=== PATIENT | female | born 1950 | race Caucasian/White ===

== ENCOUNTER → 2019-02-02 13:25 | Outpatient (CLI) | payer MEDICARE, SELFPAY ==
[2019-01-25 10:45] VITALS: BMI 43.5
--- NOTE | 2019-02-02 13:27 | US_ITS ---
STUDY: ULTRASOUND TRANSVAGINAL CLINICAL: Female, 68 years old. Postmenopausal bleeding TECHNIQUE: Transvaginal and transabdominal COMPARISON: None. FINDINGS: Normal uterine size measuring 6 x 5.5 x 3.2 cm in maximal craniocaudal dimension. There are no myometrial masses. Thickened endometrial lining for postmenopausal state measuring 12 mm in thickness and heterogeneous.. There are no endometrial masses, and there is no fluid in the endometrial cavity. Tiny calcifications are seen within the endometrial lining Normal uterine cervix. Ovaries are not visualized. No adnexal mass or free fluid US/Transvaginal Non- IMPRESSION: Thickened endometrial lining for postmenopausal state. Cannot exclude endometrial hyperplasia or neoplasia. Clinical correlation recommended Electronically Signed: Campbell Daniel MD at 16:55 EDT , Service support ,
== END ==
PROVIDERS: Family Provider Family Medicine; PCP Family Medicine; Referring Provider Nurse Practitioner Women's Health; Visit Provider Nurse Practitioner Women's Health
DX: N95.0 Postmenopausal bleeding (principal)
CPT/HCPCS: 76830

== ENCOUNTER 2019-04-16 17:10 | Emergency (ER) | payer MEDICARE, SELFPAY ==
[2019-01-25 10:45] VITALS: BMI 43.5
[2019-04-16 17:10] VITALS: BP 150/79; PULSE 81; RESP 16; TEMP 37.2; O2SAT 98; BMI 41.5
[2019-04-16 17:23] VITALS: BP 148/75; PULSE 82; RESP 14; O2SAT 98
--- NOTE | 2019-04-16 17:30 | RAD_ITS ---
STUDY: X-RAY CHEST REASON FOR EXAM: Female, 69 years old. Fever and chills, recent chemotherapy TECHNIQUE: Frontal view of the chest was performed COMPARISON: None. FINDINGS: Lungs are clear. There is no pneumothorax, pulmonary edema, pleural effusions or cardiomegaly. Osseous structures are intact. There is no gas under the diaphragms. [ ] RAD/Chest 1 View (Portable) IMPRESSION: 1. No acute cardiorespiratory disease. [ ] Electronically Signed: Mark Hunter, at 18:06 EDT Tel , Service support ,
--- NOTE | 2019-04-16 17:31 | ED.VIS.GEN ---
History of Present Illness Chief Complaint: Fever Informant: Patient Onset: Days Current Severity: Mild Maximum Severity: Mild Narrative: Patient presents with concern for fever. 3 days ago she had a temperature of 100.5 and had a syncopal episode with a fall. She called her oncologist who advised her to hold her to chlorothiazide. She felt well the next 2 days but today has had a fever again, T-max 101.7. Last dose of Tylenol was 6-1/2 hours prior to arrival. She reports a very minimal cough and some mild lower abdominal cramping. She is currently on carbo and Taxol for treatment of uterine cancer. She had a hysterectomy performed approximately 5 weeks ago. Past Medical History - Allergies and Home Meds Allergies/Adverse Reactions: Allergies lisinopril Adverse Reaction (Verified 04/16/19 17:12) Other Primary Care Physician: Gato Crowell MD [STAFF PHYSICIAN] - Doctors: Dr. Tellez Prior records reviewed: Yes Past Medical History: - - Reviewed Surgical History: hysterectomy Lives: With Family Smoking Status: Never smoker Review of Systems General: Reports: Fever. Denies: Chills Eyes: Denies: Visual changes - bilaterally ENT: Denies: Bilateral ear pain, Sore throat Cardiovascular: Denies: Chest pain, Palpitations Respiratory: Reports: Cough. Denies: Dyspnea, Sputum Gastrointestinal: Reports: Abdominal pain, - - Decreased appetite. Denies: Nausea, Vomiting, Diarrhea Genitourinary: Denies: Dysuria Musculoskeletal: Reports: Extremity Pain - Achiness in bilateral legs Skin: Denies: Rash Neurological: Reports: Headache - Mild, waxing and waning headache Endocrine: Denies: Polyuria, Polydipsia Hematologic: Denies: Easy bruising Allergy: Denies: Uticaria Physical Exam Vital Signs/Narrative: Vital Signs Temp Pulse Resp BP Pulse Ox 04/16/19 17:23 82 14 148/75 H 98 04/16/19 17:10 99 F 81 16 150/79 H 98 General: Well nourished, Well developed Head: Normocephalic Eyes: EOMI ENT: Moist mucous membranes Neck: Supple Cardiovascular: Regular rate, Regular rhythm Respiratory: No distress, CTA bilaterally Abdomen: Soft, Nontender, Normal bowel sounds Extremities: Nontender Skin: Normal color, No rash Neurological: Alert, Oriented x3 Psychological: Normal affect Diagnostic/Tx/Re-eval Impressions Chest X-Ray 04/16/19 17:30 IMPRESSION: 1. No acute cardiorespiratory disease. [ ] Electronically Signed: Mark Hunter, at 18:06 EDT Tel , Service support , 04/16/19 17:30 Chest 1 View (Portable) [RAD] Stat Laboratory Results 04/16/19 04/16/19 04/16/19 17:55 17:55 17:55 WBC 3.1 L RBC 3.92 L Hgb 11.7 L Hct 35.5 L MCV 90.6 MCH 29.8 MCHC 33.0 RDW Std Deviation 41.1 RDW Coeff of Rayna 12.3 Plt Count 161 MPV 9.9 Immature Gran % (Auto) 0.700 Neut % (Auto) 68.2 Lymph % (Auto) 27.5 Garrard % (Auto) 1.6 Eos % (Auto) 1.3 Baso % (Auto) 0.7 Absolute Neuts (auto) 2.1 Absolute Lymphs (auto) 0.84 Nucleated RBC % 0 Differential Comment SCANNED Sodium 134 L Potassium 3.3 L Chloride 96 L Carbon Dioxide 32.0 Anion Gap 6 BUN 12 Creatinine 0.71 Estim Creat Clear Calc 45.20 Est GFR (MDRD) Af Amer 104 Est GFR (MDRD) Non-Af 86 BUN/Creatinine Ratio 16.9 Glucose 126 H Lactic Acid 1.9 Calcium 9.1 Total Bilirubin 1.00 Direct Bilirubin 0.26 AST 35 ALT 39 Alkaline Phosphatase 111 Total Protein 7.3 Albumin 3.6 Globulin 3.7 Urine Color Urine Clarity Urine pH Ur Specific [place] Urine Protein Urine Glucose (UA) Urine Ketones Urine Occult Blood Urine Nitrite Urine Bilirubin Urine Urobilinogen Ur Leukocyte Esterase Urine RBC Urine WBC Ur Squamous Epith Cells Urine Bacteria Urine Mucus 04/16/19 19:15 WBC RBC Hgb Hct MCV MCH MCHC RDW Std Deviation RDW Coeff of Rayna Plt Count MPV Immature Gran % (Auto) Neut % (Auto) Lymph % (Auto) Garrard % (Auto) Eos % (Auto) Baso % (Auto) Absolute Neuts (auto) Absolute Lymphs (auto) Nucleated RBC % Differential Comment Sodium Potassium Chloride Carbon Dioxide Anion Gap BUN Creatinine Estim Creat Clear Calc Est GFR (MDRD) Af Amer Est GFR (MDRD) Non-Af BUN/Creatinine Ratio Glucose Lactic Acid Calcium Total Bilirubin Direct Bilirubin AST ALT Alkaline Phosphatase Total Protein Albumin Globulin Urine Color Yellow Urine Clarity Clear Urine pH 8.0 Ur Specific [place] 1.010 Urine Protein 30 H Urine Glucose (UA) Normal Urine Ketones 5 H Urine Occult Blood 10 H Urine Nitrite Negative Urine Bilirubin Negative Urine Urobilinogen Normal Ur Leukocyte Esterase 25 H Urine RBC 0 SEEN Urine WBC 0-5 SEEN Ur Squamous Epith Cells 0 SEEN Urine Bacteria 0 SEEN Urine Mucus 0 SEEN - Medical Decision Making Patient was given IV fluids here. Test results are discussed with patient and family. I spoke with Dr. Urias, on-call for Dr. Tellez. Patient is not currently neutropenic and has no obvious source of infection. Patient is to monitor her symptoms and follow-up tomorrow. ED Disposition - Plan for ED Patient: Disposition: Home or Assisted Living Diagnosis: Fever Instructions: FEBRILE ILLNESS, Uncertain Cause (Adult) Referrals: Savage Tellez DO [STAFF PHYSICIAN] - 1 Day
[2019-04-16] MEDS: 0.9% Normal Saline 1,000 ML 150 ML IV (17:54)
[2019-04-16 18:12] LABS: Absolute Lymphocyte Count 0.84 X10^3/uL (0.83-4.51); Absolute Neutrophil Count 2.1 X10^3/uL (2.0-7.7); Basophil# 0.02 X10^3/uL; Basophil% 0.7 % (0-1); Eosinophil# 0.04 X10^3/uL; Eosinophils% 1.3 % (0-5); Hematocrit 35.5 % (37-47); Hemoglobin 11.7 g/dL (12.0-15.0); Lymphocyte # 0.84 X10^3/ul (4.0); Lymphocyte % 27.5 % (19-41); Mean Corpuscular Hgb 29.8 pg (27.0-32.0); Mean Corpuscular Volume 90.6 fL (81-99); Mean Platelet Vol. 9.9 fl (6.2-12.0); Monocyte# 0.05 X10^3/uL; Monocyte% 1.6 % (0-10); NRBC Flagged by Analyzer 0 % (0-5); Neutrophil # 2.08 X10^3/uL (2.7-7.7); Neutrophil % 68.2 % (47-70); POSITIVE MORPHOLOGY YES; Platelet Count 161 K/mm3 (150-450); RBC Distribution Width CV 12.3 % (11.6-14.6); RBC Distribution Width SD 41.1 fl (35.1-43.9); Red Blood Count 3.92 M/mm3 (4.2-5.4); White Blood Count 3.1 K/mm3 (4.4-11.0)
[2019-04-16 18:15] LABS: Differential Indicated SCAN CRITERIA MET
[2019-04-16 18:27] LABS: AST(SGOT) 35 U/L (15-37); Alanine Aminotransfer ALT/SGPT 39 U/L (13-56); Albumin, Serum 3.6 g/dL (3.2-5.0); Alkaline Phosphatase 111 U/L (45-117); Anion Gap 6 (5-15); BUN 12 mg/dL (7-18); BUN/Creat Ratio 16.9 RATIO (10-20); Bilirubin, Direct 0.26 mg/dL (0.00-0.30); Calcium,Total 9.1 mg/dL (8.5-10.1); Chloride 96 mmol/L (98-107); Creatinine, Serum 0.71 mg/dL (0.55-1.02); EST Glomerular Filtration Rate 86 mL/min (>60); Est Glom Filt Rate - Afr Amer 104 mL/min (>60); Globulin 3.7 g/dL (2.2-4.2); Glucose 126 mg/dL (74-106); Potassium 3.3 mmol/L (3.5-5.1); Protein, Total 7.3 g/dL (6.4-8.2); Sodium Level 134 mmol/L (136-145)
[2019-04-16 18:31] LABS: Differential Comment SCANNED
[2019-04-16 18:36] LABS: Lactic Acid 1.9 mmol/L (0.4-2.0)
[2019-04-16 19:23] LABS: Bacteria 0 SEEN /hpf (None Seen); Mucous, Urine 0 SEEN /hpf (<or=2+); Red Blood Cells-Urine 0 SEEN /hpf (0-5); Squamous Epithelial Cells - UA 0 SEEN /hpf (5-10)
[2019-04-16 19:29] LABS: Color, Urine Yellow (Yellow); Glucose, Dipstick Normal (Normal); Ketone-Dipstick 5 mg/dl (Negative); Leukocyte Esterase-Dipstick 25 /ul (Negative); Nitrite-Dipstick Negative (Negative); Occult Blood-Urine 10 /ul (Negative); Protein-Dipstick 30 mg/dl (Negative); Urine Bilirubin Dipstick Negative (Negative); Urine Clarity Clear (Clear); Urine Urobilinogen Normal (Normal)
[2019-04-16 19:33] LABS: White Blood Cells 0-5 SEEN /hpf (0-5)
[2019-04-16 19:35] VITALS: RESP 20
[2019-04-16 20:19] VITALS: BP 141/80; PULSE 80; RESP 16; O2SAT 98
== END 2019-04-16 20:36 | disposition home or self-care (01) ==
PROVIDERS: Emergency Provider Emergency Medicine
DX: R50.9 Fever, unspecified (principal)
CPT/HCPCS: 71045; 80048; 80076; 81001; 83605; 85025; 87040; 96360; 96361; 99284; J7030; A4216

== ENCOUNTER 2019-04-30 13:21 | Day surgery (SDC) | payer MEDICARE, SELFPAY ==
--- NOTE | 2019-04-28 14:20 | HP.PCM_ITS ---
History and Physical Date of Admission: 04/30/19 Sariah Delcid 1950 REFERRING PHYSICIAN: Savage Tellez DO CHIEF COMPLAINT: port consult HPI: The patient is a 69 year old female who presents for consideration for placement of portacath. She had initially presented with vaginal bleeding and workup revealed uterine cancer. She is s/p total hysterectomy 03/09/19. She will require neoadjuvant chemotherapy. Portacath placement is requested. Denies DVT Denies fractures Denies previous central line placement. PAST MEDICAL HISTORY ? Allergic rhinitis, cause unspecified year round ? Anxiety ? 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 Depression ? Diabetes (HCC) ? Diabetes mellitus without complication (HCC) 02/16/2019 ? Diverticulosis of colon (without mention of hemorrhage) ? Essential hypertension, benign ? External hemorrhoids without mention of complication ? GERD (gastroesophageal reflux disease) ? Hyperlipidemia ? Internal hemorrhoids without mention of complication ? Obesity, unspecified ? TRAVON (obstructive sleep apnea) 02/16/2019 ? Osteoarthrosis, unspecified whether generalized or localized, unspecified site fingers, knees ? Other and unspecified hyperlipidemia ? Unspecified constipation 1960 PAST SURGICAL HISTORY ? COLONOSCOP W/ OR W/O [facility] SPEC 06/15/11 repeat due 2020 ? LIGATE FALLOPIAN TUBE 1977 Tubal ligation ? REMOVAL OF TONSILS,<12 Y/O 1955 Tonsillectomy Robotic total hysterectomy, bilateral salpingo-oophorectomy,?left/right pelvic a nd?omental biopsy?and cystoscopy?03/09/19 ? Current Outpatient Medications: ondansetron (ZOFRAN) 8 mg tablet Take 1 tablet by mouth every 8 hours as needed for Nausea/Vomiting. dexamethasone (DECADRON) 4 mg tablet Take 5 tablets 12 hours prior to and again 6 hours prior to first dose of Taxol. acetaminophen (TYLENOL) 325 mg tablet Take 2 tablets by mouth every 4 hours as needed. (Patient not taking: Reported on 04/03/2019 ibuprofen (MOTRIN) 600 mg tablet Take 1 tablet by mouth every 6 hours as needed for Pain. Take with food. docusate sodium (COLACE) 100 mg capsule Take 1 capsule by mouth twice daily. (Patient not taking: Reported on 03/30/2019 Omeprazole 40 mg capsule Take 40 mg by mouth once daily. rosuvastatin (CRESTOR) 20 mg tablet Take 20 mg by mouth once daily. FLUoxetine HCl 20 mg tablet Take 20 mg by mouth once daily. metformin HCl (METFORMIN ORAL) Take 1,000 mg by mouth twice daily with meals. metoprolol succinate XL, long acting, 50 mg 24 hr tablet Take 1 tablet by mouth once daily. hydrochlorothiazide 25 mg tablet Take 1 tablet by mouth once daily. polyethylene glycol 3350 17 gram packet 1-2 scoops daily for constipation ascorbic acid(VITAMIN C 500 MG SR CAP) Take 1 capsule by mouth once daily. VITAMIN E 400 UNIT CAP Take 400 Units by mouth twice daily. Swallow whole. DO NOT crush or break. cyanocobalamin(VITAMIN B-12 SR 2,000 MCG TAB) Take 1 tablet by mouth once kenroy ly. aspirin(ADULT LOW DOSE ASPIRIN 81 MG TAB, DELAYED RELEASE) Take 81 mg by mouth once daily. Calcium Carbonate-Vitamin D2 (CALCIUM + D) 600-200 mg-unit ORAL Tab Take 1 tablet by mouth twice daily. Multivitamin (DAILY MULTIPLE) ORAL Tab Take 1 tablet by mouth once daily. loratadine (CLARITIN) 10 mg ORAL Tab Take one(1) tablet daily as needed for allergy symptoms. ALLERGIES: Lisinopril; Losartan PERSONAL HISTORY: Social History Socioeconomic History Marital status: Spouse name: Good Number of children: 3 Years of education: 12 Occupational History Occupation: retired, [employer] Social History Narrative In [place] for winter usually. FAMILY HISTORY ? Lipids Mother ? other (non hodgekins lymphoma) Mother ? Cancer Father skin cancer (BCC vs. SCC) ? Heart Father CABGx3 (age 79) ? Heart disease Father ? Heart Maternal Grandfather age 52; heavy alcohol ? Stroke Paternal Grandfather ? Cancer Brother prostate ca ? other (Cirrhosis) Paternal Grandmother no alcohol, told too much aspirin ? Cancer Grandchild 28 breast ca; PALB2 mutation but her mother (pt's daughter is negative) REVIEW OF SYSTEMS: Constitutional: Denies weight loss, night sweats. Normal appetite. Neuro: denies history of cva, Denies headaches, vertigo, dizziness and imbalance. HEENT: No recent change in voice, vision or hearing. Resp: Denies cough, wheeze and hemoptysis. Denies shortness of breath at rest. Denies [place]. CVS: Denies exertional chest pain, PND, orthopnea and LE edema. GI: denies chronic N/V. Denies blood in stools. Denies symptoms of stomatitis. Denies dysphagia and odynophagia. : noted vaginal bleeding which led to findings of uterine cancer Endo: Has diabetes. Denies hot flashes. Denies polyuria and polydipsia. Denies heat and cold intolerance. Musculoskeletal: has calf soreness Derm: Denies rash. Denies jaundice and diffuse pruritis. Heme: Denies unusual bleeding and unexplained bruising. Psych: Normal mood. PHYSICAL EXAMINATION: General: The patient is 69 year old female, well nourished, well hydrated in no acute distress. The patient is oriented to time, place, and person. VITALS: Blood pressure 138/68, pulse 77, temperature 36.6 ?C (97.8 ?F), temperature source Temporal Artery, resp. rate 18, weight 109.3 kg (241 lb), Ht; 5'4.25 SpO2 96 %. Body mass index is 41.05 kg/m?. Head ? Normocephalic. EOM intact with sclera clear and no icterus noted. Mouth with mucus membranes moist. Neck - supple with no jugular venous distention noted. Trachea is midline. . No masses noted. Lungs ? clear to auscultation. Normal breath sounds. No rales/rhonchi/wheezing noted. No labored breathing noted, such as retractions. No cough heard. Heart ? normal S1 and S2 auscultated. No rubs/clicks/murmurs noted. Regular rate. Abdomen ? soft and benign. Normal bowel sounds. Difficult to determine if any masses or organomegaly due to body habitus. Extremities ? no calf tenderness noted. No pitting edema noted. Skin ? normal skin integrity. Lymph ? no cervical adenopathy detected, no supraclavicular adenopathy detected Neurological ? cranial nerves II-XII intact. Normal motor strength in arms and legs. No localized numbness detected. Psych ? calm and appropriate IMPRESSION: uterine cancer, need for IV access PLAN: I have discussed the above with the patient and her family who is present with her. I have offered placement of portacath I have explained the procedure to the patient. I have counseled the patient as to the risks of the procedure, including but not limited to: infection, bleeding, injury to any blood vessels/nerves, injury to the lungs such as pneumothorax or hemothorax, inability to place the portacath, thrombosis, infection of port, non functioning of port, wound infections, complications of anesthesia, etc. ? the patient understands. The patient wishes to proceed. I have answered all questions to the patient?s satisfaction and the patient has no further questions. . 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 Sariah Santamaria MD
[2019-04-30] VITALS (8 sets, daily range): BP systolic 139–147; BP diastolic 63–77; PULSE 65–71; RESP 16; TEMP 36.3–36.8; O2SAT 96–97; BMI 39.9
[2019-04-30] MEDS: Lactated Ringers 1,000 ML 75 ML IV (13:59)
[2019-04-30 14:36] LABS: Bedside Glucose 131 mg/dL (70-110)
[2019-04-30] MEDS: Cefazolin 2 GM in 0.9% Normal Saline 100 ML IV (15:02)
--- NOTE | 2019-04-30 15:59 | DCINST_ITS ---
Discharge Diet: No Restrictions Discharge Activity: Return to Normal Activity, May not drive while taking narcotic pain medications. Call your doctor if your incision/area has: Continuous Slow Oozing, Foul Smelling Discharge Additional Dressing/Incision Instructions:: Leave dressing in place. May get wet in shower. Do not soak - no tub baths/swimming Allergies/Adverse Reactions: Allergies lisinopril Adverse Reaction (Verified 04/30/19 13:49) Other Medications to take at Discharge aspirin 81 mg tablet,delayed release 81 mg PO DAILY 01/25/19 calcium carbonate 500 mg calcium (1,250 mg) tablet 600 mg PO DAILY 01/25/19 cholecalciferol (vitamin D3) 1,000 unit capsule 1,000 unit PO DAILY 01/25/19 fluoxetine 20 mg capsule 20 mg PO DAILY 01/25/19 mecobalamin (vitamin B12) 1,000 mcg disintegrating tablet,sublingual 1,000 mcg PO DAILY 01/25/19 melatonin 10 mg capsule 10 mg PO HS 01/25/19 metformin 1,000 mg tablet 1,000 mg PO BID 01/25/19 metoprolol tartrate 50 mg tablet 50 mg PO DAILY 01/25/19 multivitamin tablet 1 tab PO DAILY 01/25/19 omeprazole 20 mg capsule,delayed release 20 mg PO DAILY 01/25/19 polyethylene glycol 3350 17 gram/dose oral powder 17 g PO DAILY 01/25/19 rosuvastatin 20 mg tablet 20 mg PO DAILY 01/25/19 Cyanocobalamin (Vitamin B-12) [Vitamin B-12] 1,000 mcg PO DAILY 04/26/19 Hydrocodone Bitart/Apap 5-325 [[place] 5MG-325MG] 1 tab PO Q8H PRN PRN 4 Days #20 tab 04/30/19 The following prescriptions were given: Hydrocodone Bitart/Apap 5-325 [[place]prise 5MG-325MG] 1 tab PO Q8H PRN PRN 4 Days #20 tab PRN Reason: Pain Prescription Printed Primary Care Physician: Care Physician,No Primary [Primary Care Provider] - Test Results: Test results from this visit will be discussed in further detail at your follow- up appointment, if applicable. Please Follow Up With: Sariah Santamaria MD - call When: to be seen in 1-2 weeks, please call for date and time, thank you
--- NOTE | 2019-04-30 16:00 | PCM.OPRPT ---
Report of Operation Date of Procedure: 04/30/19 Pre-Operative Diagnosis: uterine cancer, need for IV access Post-Operative Diagnosis: same Surgery/Procedure Performed:: placement of permanent indwelling catheter in the right subclavian vein with subcutaneous port Description of Surgical Findings:: could not access left subclavian vein or left internal jugular vein, normal right subclavian vein anatomy to the SVC Type of Anesthesia:: Local MAC Anesthesiologist: Ash Post Specimen's removed: none Estimated Blood Loss (mL): < 10 ml Fluids Replaced: see anesthesia note Description of Procedure: After informed consent was given, the patient was brought to the operating room and placed in the supine position. Appropriate time out protocol was followed. She was then given IV conscious sedation for anesthesia. The patient?s upper chest and neck were then prepped with a surgical skin preparation and sterile surgical drapes were placed. After proper landmarks were ascertained, the skin at the upper left chest area was then infiltrated with 1% xylocaine with epinephrine. A needle trocar was then inserted into the left subclavian vein but could not be accessed. Attempt was also made to access the left internal jugular vein, but this also could not be found. Therefore attention was placed to the right chest area. After ascertaining landmarkds,, the skin at the upper right chest area was then infiltrated with 1% xylocaine with epinephrine. A needle trocar was then inserted into the right subclavian vein and there was good aspiration of venous blood. A wire was then threaded into the needle trocar and this was visualized under fluoroscopy to ensure that the wire was in the right subclavian vein. Once this was done, then the needle trocar was removed. A small skin alexey was made with an 11 blade knife at the wire entrance site. The dilator with the introducer sheath attached was then placed over the wire into the right subclavian vein via the Seldinger technique and this was visualized under fluoroscopy. The dilator and sheath were in proper position as visualized by fluoroscopy. The wire and dilator were then removed. The catheter was then threaded into the introducer sheath and was positioned with its tip at the junction of the superior vena cava and the right atrium as visualized under fluoroscopy. The catheter was flushed with a heparin saline mixture prior to placement. A subcutaneous pocket was then created caudad to the catheter insertion site. A transverse skin incision was made after the skin and subcutaneous tissues were infiltrated with local anesthetic. Blunt dissection was then used to create a space large enough for placement of the subcutaneous port. Hemostasis was carefully controlled with electrocautery. The port was sutured to the subcutaneous fascia using vicryl suture at three sites. The catheter was then tunneled into the subcutaneous pocket. The excess catheter was transected. The catheter was then attached to the subcutaneous port using farmworker general?s guidelines. The port was then placed in the subcutaneous pocket and the sutures were ligated. The subdermal incisional sites were reapproximated with interrupted vicryl suture. The skin was reapproximated with monocryl suture in a subcuticular fashion. Cavilon and steristrips were used for reinforcement of the skin closure and a sterile opsite dressing was applied. The patient was brought to the Recovery Room in stable conditionl. - Complications none noted - Admit VTE Documentation VTE Present on Admission: Yes VTE Mechan Device Prophylaxis: SCD's
--- NOTE | 2019-04-30 16:05 | RAD_ITS ---
STUDY: X-RAY CHEST REASON FOR EXAM: Female, 69 years old. Sagittal vascular port insertion TECHNIQUE: PA and lateral views of the chest. COMPARISON: 04/16/2019 chest x-ray FINDINGS: The right-sided Port-A-Cath tip is in superior vena cava. There is no demonstrated pleural abnormality. There are endovascular stent(s) present. Normal mediastinum and ymaile. Normal visualized pulmonary arteries. There is atherosclerotic tortuosity of the aortic arch and descending thoracic aorta. There are diffuse degenerative changes of the visualized thoracic spine. Normal visualized ribs, clavicles, and shoulders. There is no demonstrated abnormality of the visualized soft tissue structures of the upper abdomen. RAD/CXR for Line Placement IMPRESSION: Right-sided Port-A-Cath tip in this particular vena cava. No pneumothorax. Electronically Signed: Anjana Torre MD at 16:33 EST Tel , Service support ,
== END 2019-04-30 18:13 | disposition home or self-care (01) ==
LOC: SDC 13:25 → AC 13:25
PROVIDERS: Referring Provider Surgery; Visit Provider Surgery
PROC: (CPT 36561; principal; 2019-04-30 14:45)
DX: C55 Malignant neoplasm of uterus, part unspecified (principal); K21.9 Gastro-esophageal reflux disease without esophagitis; E78.00 Pure hypercholesterolemia, unspecified; E11.9 Type 2 diabetes mellitus without complications; F32.9 Major depressive disorder, single episode, unspecified; F41.9 Anxiety disorder, unspecified; I10 Essential (primary) hypertension; G47.30 Sleep apnea, unspecified; E66.01 Morbid (severe) obesity due to excess calories; Z68.41 Body mass index [BMI] 40.0-44.9, adult; Z45.2 Encounter for adjustment and management of vascular access device; Z79.82 Long term (current) use of aspirin; Z79.84 Long term (current) use of oral hypoglycemic drugs; Z79.899 Other long term (current) drug therapy
CPT/HCPCS: 36561; 71045; 77001; 82962; J7120; C1788; J2405

== ENCOUNTER 2019-07-07 15:58 | Emergency (ER) | payer MEDICARE, SELFPAY ==
[2019-04-30 13:50] VITALS: BMI 39.9
[2019-07-07 15:59] VITALS: BP 143/70; PULSE 81; RESP 16; TEMP 36.9; O2SAT 97; BMI 38.6
[2019-07-07 16:16] VITALS: RESP 18
--- NOTE | 2019-07-07 16:21 | ED.DCSUM_ITS ---
History of Present Illness Chief Complaint: Abd Pain Informant: Patient, Family Narrative: Patient presents after concern for urinary tract infection. Patient has been noticing dysuria and some incontinence and urgency. Low-grade temperature yesterday at 99. She is a chemotherapy patient for uterine cancer and sees Dr. Tellez. Last chemotherapy was Tuesday. The patient states she did have some vomiting today. She is had decreased p.o. yesterday and today compared to normal. No diarrhea. No runny nose cough sore throat. Past Medical History - Allergies and Home Meds Allergies/Adverse Reactions: Allergies lisinopril Adverse Reaction (Verified 07/07/19 16:04) Other Primary Care Physician: Savage Tellez DO [Primary Care Provider] - Keep Kaylee appointment Surgical History: hysterectomy Smoking Status: Never smoker Review of Systems General: Reports: Fever, Malaise. Denies: Chills, Sweats Eyes: Denies: Visual changes - bilaterally, Diplopia ENT: Denies: Rhinorrhea, Sore throat Cardiovascular: Denies: Chest pain, Palpitations Respiratory: Denies: Dyspnea, Cough, Dyspnea on exertion Gastrointestinal: Reports: Nausea, Vomiting. Denies: Abdominal pain, Diarrhea, Melena, Hematochezia Genitourinary: Reports: Dysuria, - - Urgency and incontinence. Denies: Hematuria, Frequency Musculoskeletal: Denies: Back pain, Extremity Pain Skin: Denies: Rash, Wounds Neurological: Denies: Headache, Weakness, Numbness Psych: Denies: Suicidal thoughts, Suicidal ideations Endocrine: Denies: Polyuria, Polydipsia Hematologic: Denies: Lymphadenopathy Allergy: Denies: Swelling of the mouth, Swelling of the tongue Physical Exam Vital Signs/Narrative: Vital Signs Temp Pulse Resp BP Pulse Ox 07/07/19 16:16 18 07/07/19 15:59 98.5 F 81 16 143/70 H 97 Inital Vital Signs reviewed: Yes General: Well nourished, Well developed, Obese, No Acute Distress Head: Normocephalic, Atraumatic Eyes: Perrl, EOMI ENT: Moist mucous membranes, No rhinorrhea Neck: Supple, Nontender Cardiovascular: Regular rate, Regular rhythm, No murmurs Respiratory: No distress, CTA bilaterally, Chest nontender Abdomen: Soft, Nontender, Nondistended, Normal bowel sounds Back: Nontender, Normal Inspection Extremities: Nontender, No edema Skin: Normal color, No rash Neurological: Alert, Oriented x3, Cranial nerves II-XII grossly intact, Normal Strength, Normal Sensation Psychological: Normal affect, Normal Mood Diagnostic/Tx/Re-eval - Medical Decision Making Basic labs showed a white count of 18 (patient received her post chemotherapy injections on Tuesday and which is most likely resulting in this leukocytosis). Hemoglobin is 7.9. Her last hemoglobin was 8.4 (03 July 2019). Otherwise creatinine is normal electrolytes are in check. Patient's urine is obviously infected and will be sent for culture. There are no cultures either in our [employer] system or in [employer] [place] that I can find. Therefore patient meño l be treated with Keflex for 7 days. Also write for Pyridium for the dysuria and urgency. She received 2 L of IV fluids and has urinated several times. She has tolerated p.o. fluids. Return if worsening or concerns. ED Disposition - Plan for ED Patient: Diagnosis: Dehydration, Acute cystitis Instructions: Urinary Tract Infections in Women Prescriptions: Cephalexin [Keflex] 500 mg PO Q6 #27 cap Prescription Printed Phenazopyridine HCl [Pyridium] 200 mg PO TID #10 tab Prescription Printed Referrals: Savage Tellez DO [Primary Care Provider] - Keep Kaylee appointment
[2019-07-07] MEDS: Ondansetron 4 MG/2 ML Vial IV (16:54)
[2019-07-07] MEDS: 0.9% Normal Saline 1,000 ML 1000 ML IV ×2 (16:54→18:02)
[2019-07-07 17:08] LABS: Hematocrit 24.2 % (37-47); Hemoglobin 7.9 g/dL (12.0-15.0); Mean Corp Hgb Conc 32.6 g/dL (32-36); Mean Corpuscular Hgb 33.5 pg (27.0-32.0); Mean Corpuscular Volume 102.5 fL (81-99); Mean Platelet Vol. 9.5 fl (6.2-12.0); POSITIVE COUNT YES; POSITIVE MORPHOLOGY YES; Platelet Count 98 K/mm3 (150-450); RBC Distribution Width CV 19.4 % (11.6-14.6); RBC Distribution Width SD 71.9 fl (35.1-43.9); Red Blood Count 2.36 M/mm3 (4.2-5.4)
[2019-07-07 17:09] LABS: AST(SGOT) 18 U/L (15-37); Alanine Aminotransfer ALT/SGPT 20 U/L (13-56); Albumin, Serum 3.5 g/dL (3.2-5.0); Alkaline Phosphatase 129 U/L (45-117); Anion Gap 9 (5-15); BUN 13 mg/dL (7-18); BUN/Creat Ratio 18.9 RATIO (10-20); Calcium,Total 8.7 mg/dL (8.5-10.1); Chloride 101 mmol/L (98-107); Creatinine, Serum 0.69 mg/dL (0.55-1.02); EST Glomerular Filtration Rate 90 mL/min (>60); Est Glom Filt Rate - Afr Amer 109 mL/min (>60); Globulin 3.5 g/dL (2.2-4.2); Glucose 137 mg/dL (74-106); Lipase 58 U/L (73-393); Potassium 3.8 mmol/L (3.5-5.1); Sodium Level 136 mmol/L (136-145)
[2019-07-07 17:10] LABS: Differential Indicated MANUAL DIFF
[2019-07-07 17:27] LABS: Mucous, Urine 0 SEEN /hpf (<or=2+)
[2019-07-07 17:31] LABS: Color, Urine Yellow (Yellow); Glucose, Dipstick Normal (Normal); Ketone-Dipstick Negative (Negative); Leukocyte Esterase-Dipstick 500 /ul (Negative); Nitrite-Dipstick Positive (Negative); Occult Blood-Urine 250 /ul (Negative); Protein-Dipstick 100 mg/dl (Negative); Urine Bilirubin Dipstick Negative (Negative); Urine Clarity Cloudy (Clear); Urine Urobilinogen Normal (Normal)
[2019-07-07 17:37] LABS: White Blood Cells >100 SEEN /hpf (0-5)
[2019-07-07 17:38] LABS: Bacteria 4+ /hpf (None Seen); Red Blood Cells-Urine 5-10 SEEN /hpf (0-5); Squamous Epithelial Cells - UA 0-5 SEEN /hpf (5-10)
[2019-07-07 18:09] LABS: Absolute Lymphocyte Count 0.72 X10^3/uL (0.83-4.51); Absolute Neutrophil Count 17.1 X10^3/uL (2.0-7.7); Lymphocyte # 0.72 X10^3/ul (4.0)
[2019-07-07 18:10] LABS: Anisocytosis 3+; Differential Comment SCANNED; Lymphocyte 4 % (19-41); Macrocytosis RARE; Monocyte 1 % (0-10); Neutrophil-Segmented 95 % (47-70); Platelet Estimate SLT DEC (ADEQ); Tear Drop Cell RARE; Total Cells Counted 100 (MANUAL DIFF)
[2019-07-07 18:25] VITALS: RESP 18
[2019-07-07 19:14] VITALS: BP 169/71; PULSE 89; RESP 16; O2SAT 96
[2019-07-09 14:39] LABS: Pathologist Review Reviewed
== END 2019-07-07 19:17 | disposition home or self-care (01) ==
LOC: ED 16:47
PROVIDERS: Emergency Provider Emergency Medicine; Family Provider Internal Medicine Hematology & Oncology; PCP Internal Medicine Hematology & Oncology
DX: N30.00 Acute cystitis without hematuria (principal); E86.0 Dehydration; E66.9 Obesity, unspecified; Z68.38 Body mass index [BMI] 38.0-38.9, adult
CPT/HCPCS: 36591; 80053; 81001; 83690; 85025; 87040; 87086; 87088; 87186; 96361; 96374; 99285; J7030; A4216; J2405

== ENCOUNTER → 2019-07-25 08:17 | Outpatient (CLI) | payer MEDICARE, SELFPAY ==
[2019-07-07 15:59] VITALS: BMI 38.6
[2019-07-25] VITALS (7 sets, daily range): BP systolic 110–131; BP diastolic 59–74; PULSE 72–80; RESP 16–18; TEMP 35.9–36.5; O2SAT 98; BMI 37.1
[2019-07-27 19:28] LABS: Color, Urine- Transfusion RXN Yellow (Yellow); TXN RXN Red Blood Cells-Urine 0-5 SEEN /hpf
[2019-07-27 19:29] LABS: Occult Blood-Urine Supernatant Negative (Negative)
== END ==
PROVIDERS: PCP Internal Medicine Hematology & Oncology; Referring Provider Internal Medicine Hematology & Oncology; Visit Provider Internal Medicine Hematology & Oncology
DX: D64.81 Anemia due to antineoplastic chemotherapy (principal); T45.1X5A Adverse effect of antineoplastic and immunosuppressive drugs, initial encounter
CPT/HCPCS: 36430; 86850; 86900; 86901; 86920; 86922; J7040; P9016

== ENCOUNTER 2019-07-27 15:39 | Emergency (ER) | payer MEDICARE, SELFPAY ==
[2019-07-25 08:27] VITALS: BMI 37.1
[2019-07-27 15:39] VITALS: BP 120/64; PULSE 88; RESP 16; TEMP 38.1; O2SAT 99; BMI 37.4
[2019-07-27 15:51] VITALS: BP 145/72; PULSE 88; RESP 20; O2SAT 98
--- NOTE | 2019-07-27 16:11 | ED.DCSUM_ITS ---
History of Present Illness Chief Complaint: Fever Detail of Chief Complaint: Neutropenic fever versus short sequestration transfusion reaction Informant: Patient, Family, PCP Onset: Yesterday Context: Sudden Onset Timing: Continuous Quality: Max 102.8 ?F with rigors and dysuria Location: Generalized Current Severity: Mild Maximum Severity: Moderate Worsened by: Possible UTI Relieved by: Nothing Associated Symptoms: Generalized weakness Narrative: Patient is a 69-year-old woman with history of uterine cancer who is undergoing chemotherapy directed by Dr. Savage Tellez. She received her last dose on July 04. She was scheduled to receive her next dose on July 25. She was anemic and required transfusion. Last evening she had a documented temperature to 102.8 ?F with rigors. She has had an additional episode of rigors. She denies headache. She denies visual, ocular auditory symptoms. She states she has chronic nasal congestion and rhinorrhea. She denies neck pain or neck stiffness. She denies light sensitivity. She denies cough, shortness of breath or difficulty breathing. She denies chest discomfort. She denies nausea, vomiting or diarrhea. She does report dysuria. She has no other urinary symptoms. She states earlier this month she was diagnosed with urinary tract infection and treated with Pyridium and cephalexin. She was only treated with a 3-day course. She denies myalgias, arthralgias. She denies rash or skin lesions. She did contact her oncologist. I was contacted by Francisco from the lab regarding specific tests that Dr. camacho she requested because of concern for short sequestration transfusion reaction. Prior similar symptoms: No Recent Illness/Hospitalization: Yes - Past Medical History (1) Uterine cancer Status: Acute (2) Anemia Status: Acute (3) Encounter for wound re-check Status: Acute Past Medical History - Allergies and Home Meds Allergies/Adverse Reactions: Allergies lisinopril Adverse Reaction (Verified 07/27/19 15:43) Other COUGH Primary Care Physician: Savage Tellez DO [Primary Care Provider] - Prior records reviewed: Yes Surgical History: hysterectomy Lives: Spouse/ Significant Other Smoking Status: Never smoker Alcohol: None Drugs: None Review of Systems General: Reports: Chills, Fever, Malaise. Denies: Subjective, Sweats Eyes: Denies: Visual changes - bilaterally, Blurred Vision - bilaterally ENT: Reports: Rhinorrhea. Denies: Bilateral ear pain, Sore throat Cardiovascular: Denies: Chest pain, Palpitations Respiratory: Denies: Dyspnea, Cough, Dyspnea on exertion, Orthopnea, Paroxysmal nocturnal dyspnea Gastrointestinal: Denies: Abdominal pain, Nausea, Vomiting, Diarrhea, Melena, Hematochezia Genitourinary: Reports: Dysuria. Denies: Hematuria, Frequency Musculoskeletal: Denies: Myalgias, Arthralgias, Neck pain, Back pain, Swelling, Extremity Pain Skin: Denies: Rash, Wounds Neurological: Reports: Weakness. Denies: Headache, Parasthesia Endocrine: Denies: Polyuria, Polydipsia Hematologic: Denies: Easy bruising, Easy bleeding Physical Exam Vital Signs/Narrative: Vital Signs Temp Pulse Resp BP Pulse Ox 07/27/19 15:51 88 20 H 145/72 H 98 07/27/19 15:39 100.5 F H 88 16 120/64 99 Inital Vital Signs reviewed: Yes General: Well nourished, Well developed, Obese, - - Appears ill but not toxic Head: Normocephalic, Atraumatic Eyes: Perrl, EOMI, Pale conjunctiva. Negative for: Scleral icterus ENT: No rhinorrhea, TM's clear, Dry mucous membranes. Negative for: Nasal congestion, Sinus tenderness Neck: Supple, Nontender, No lymphadenopathy, No JVD Cardiovascular: Regular rate, Regular rhythm, No murmurs, Normal S1, Normal S2 Respiratory: No distress, CTA bilaterally, Chest nontender Abdomen: Soft, Nontender, Nondistended, Normal bowel sounds, No masses Rectal: Deferred Back: Nontender, Normal Inspection Extremities: Nontender, No edema Skin: No rash, Pallor. Negative for: Cyanosis, Diaphoresis, Jaundice Neurological: Alert, Oriented x3, Cranial nerves II-XII grossly intact, Normal Strength, Normal Sensation Psychological: Normal affect, Normal Mood Diagnostic/Tx/Re-eval Chest X-Ray - ED: 2 View, Read by ED Physician, Normal, Heart, Mediastinum, Bony Structures, Chronic Changes Impressions Chest X-Ray 07/27/19 17:45 IMPRESSION: Calcified plaques of the aortic arch. Right-sided MediPort with catheter tip in the mid SVC. No acute cardiopulmonary disease process is seen. Electronically Signed: Romel Jones MD at 17:57 EST , Service support , 07/27/19 17:45 Chest PA and Lateral [RAD] Stat Laboratory Results 07/27/19 07/27/19 07/27/19 16:39 16:39 16:39 WBC 4.6 RBC 2.79 L Hgb 9.4 L Hct 28.7 L MCV 102.9 H MCH 33.7 H MCHC 32.8 RDW Std Deviation 68.3 H RDW Coeff of Rayna 17.8 H Plt Count 118 L MPV 9.1 Immature Gran % (Auto) 0.200 Neut % (Auto) 74.2 H Lymph % (Auto) 16.1 L Prairie % (Auto) 9.5 Eos % (Auto) 0.0 Baso % (Auto) 0.0 Absolute Neuts (auto) 3.4 Absolute Lymphs (auto) 0.74 L Nucleated RBC % 0 Differential Comment PT 15.1 H INR 1.2 APTT 37.4 H Sodium 137 Potassium 3.4 L Chloride 104 Carbon Dioxide 27.0 Anion Gap 6 BUN 10 Creatinine 0.67 Estim Creat Clear Calc 45.20 Est GFR (MDRD) Af Amer 112 Est GFR (MDRD) Non-Af 93 BUN/Creatinine Ratio 15.0 Glucose 143 H Lactic Acid Calcium 9.1 Total Bilirubin 1.20 H AST 13 L ALT 15 Alkaline Phosphatase 134 H Total Protein 7.0 Albumin 3.3 Globulin 3.7 Albumin/Globulin Ratio 0.9 Urine Color Urine Clarity Urine pH Ur Specific Diana Urine Protein Urine Glucose (UA) Urine Ketones Urine Occult Blood Urine Nitrite Urine Bilirubin Urine Urobilinogen Ur Leukocyte Esterase Urine RBC Urine WBC Ur Squamous Epith Cells Urine Bacteria Urine Mucus 07/27/19 07/27/19 16:39 17:20 WBC RBC Hgb Hct MCV MCH MCHC RDW Std Deviation RDW Coeff of Rayna Plt Count MPV Immature Gran % (Auto) Neut % (Auto) Lymph % (Auto) Prairie % (Auto) Eos % (Auto) Baso % (Auto) Absolute Neuts (auto) Absolute Lymphs (auto) Nucleated RBC % Differential Comment PT INR APTT Sodium Potassium Chloride Carbon Dioxide Anion Gap BUN Creatinine Estim Creat Clear Calc Est GFR (MDRD) Af Amer Est GFR (MDRD) Non-Af BUN/Creatinine Ratio Glucose Lactic Acid 1.3 Calcium Total Bilirubin AST ALT Alkaline Phosphatase Total Protein Albumin Globulin Albumin/Globulin Ratio Urine Color Yellow Urine Clarity Cloudy Urine pH 5.0 Ur Specific Diana 1.015 Urine Protein 30 H Urine Glucose (UA) Normal Urine Ketones 15 H Urine Occult Blood 25 H Urine Nitrite Positive H Urine Bilirubin 1 H Urine Urobilinogen Normal Ur Leukocyte Esterase 500 H Urine RBC 0-5 SEEN Urine WBC 25-50 SEEN Ur Squamous Epith Cells 0-5 SEEN Urine Bacteria 2+ Urine Mucus 0 SEEN Patient is not neutropenic. She is anemic. Urine is the source of her fever. She did receive a dose of Rocephin. - Rhythm Strip Rhythm Strip: Sinus Rhythm Rate: 89 Ectopy: None - Medical Decision Making Patient presents with fever. Differential is neutropenic fever versus blood reaction. With complaint of dysuria and recent urinary tract infection concern patient has UTI. Will obtain straight cath specimen. Neutropenic order set was initiated. Because the source is presumed to be urinary she received 1 g of Rocephin IV piggyback. There is a source for her fever and white count is normal with no bandemia and normal lactate patient was discharged home with prescription for antibiotics. ED Disposition - Plan for ED Patient: Disposition: Home or Assisted Living Diagnosis: Complicated urinary tract infection, Fever immune suppressed patient, History of uterine cancer Instructions: Bladder Infection, Female (Adult) Prescriptions: Ciprofloxacin [Cipro] 500 mg PO BID #14 tab Transmission Status: Pending to [facility] Referrals: Savage Tellez DO [Primary Care Provider] - 3-5 Days
[2019-07-27 17:05] LABS: Absolute Lymphocyte Count 0.74 X10^3/uL (0.83-4.51); Absolute Neutrophil Count 3.4 X10^3/uL (2.0-7.7); Hematocrit 28.7 % (37-47); Hemoglobin 9.4 g/dL (12.0-15.0); Lymphocyte # 0.74 X10^3/ul (4.0); Lymphocyte % 16.1 % (19-41); Mean Corp Hgb Conc 32.8 g/dL (32-36); Mean Corpuscular Hgb 33.7 pg (27.0-32.0); Mean Corpuscular Volume 102.9 fL (81-99); Mean Platelet Vol. 9.1 fl (6.2-12.0); Monocyte# 0.44 X10^3/uL; Monocyte% 9.5 % (0-10); NRBC Flagged by Analyzer 0 % (0-5); Neutrophil # 3.42 X10^3/uL (2.7-7.7); Neutrophil % 74.2 % (47-70); POSITIVE MORPHOLOGY YES; Platelet Count 118 K/mm3 (150-450); RBC Distribution Width CV 17.8 % (11.6-14.6); RBC Distribution Width SD 68.3 fl (35.1-43.9); Red Blood Count 2.79 M/mm3 (4.2-5.4); White Blood Count 4.6 K/mm3 (4.4-11.0)
[2019-07-27 17:09] LABS: International Normalized Ratio 1.2; Prothrombin Time (Protime)PT. 15.1 SECONDS (11.7-14.9)
[2019-07-27 17:10] LABS: Partial Thromboplast Time 37.4 Seconds (24.1-36.2)
[2019-07-27 17:19] LABS: ALB/GLOB Ratio 0.9 RATIO (0.9-2.4); AST(SGOT) 13 U/L (15-37); Alanine Aminotransfer ALT/SGPT 15 U/L (13-56); Albumin, Serum 3.3 g/dL (3.2-5.0); Alkaline Phosphatase 134 U/L (45-117); Anion Gap 6 (5-15); BUN 10 mg/dL (7-18); Calcium,Total 9.1 mg/dL (8.5-10.1); Chloride 104 mmol/L (98-107); Creatinine, Serum 0.67 mg/dL (0.55-1.02); EST Glomerular Filtration Rate 93 mL/min (>60); Est Glom Filt Rate - Afr Amer 112 mL/min (>60); Globulin 3.7 g/dL (2.2-4.2); Glucose 143 mg/dL (74-106); Potassium 3.4 mmol/L (3.5-5.1); Sodium Level 137 mmol/L (136-145)
[2019-07-27 17:23] LABS: Lactic Acid 1.3 mmol/L (0.4-1.9)
[2019-07-27 17:27] LABS: Mucous, Urine 0 SEEN /hpf (<or=2+)
[2019-07-27 17:28] LABS: Differential Indicated SCAN CRITERIA MET
[2019-07-27] MEDS: Ceftriaxone 1 GM/50 ML BAG IV (17:38)
[2019-07-27 17:41] VITALS: BP 134/70; PULSE 83; RESP 13; O2SAT 94
--- NOTE | 2019-07-27 17:45 | RAD_ITS ---
STUDY: X-RAY CHEST REASON FOR EXAM: Female, 69 years old. immune suppressed with fever, Hx uterine cancer and in treatment now, blood transfusion 2 days ago TECHNIQUE: PA and lateral views of the chest. 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 There is a right-sided MediPort with tip in the mid SVC. The lungs are clear and expanded. There is no demonstrated pleural abnormality. Normal size heart. Normal mediastinum and yamile. Normal visualized pulmonary arteries. There are calcified plaques of the aortic arch. Normal visualized thoracic spine. Normal visualized ribs, clavicles, and shoulders. There is no demonstrated abnormality of the visualized soft tissue structures of the upper abdomen. RAD/Chest PA and Lateral IMPRESSION: Calcified plaques of the aortic arch. Right-sided MediPort with catheter tip in the mid SVC. No acute cardiopulmonary disease process is seen. Electronically Signed: Romel Joens MD at 17:57 EST , Service support ,
[2019-07-27 18:26] LABS: Color, Urine Yellow (Yellow); Glucose, Dipstick Normal (Normal); Ketone-Dipstick 15 mg/dl (Negative); Leukocyte Esterase-Dipstick 500 /ul (Negative); Nitrite-Dipstick Positive (Negative); Occult Blood-Urine 25 /ul (Negative); Protein-Dipstick 30 mg/dl (Negative); Specific Gravity, Urine 1.015 (1.002-1.030); Urine Bilirubin Dipstick 1 mg/dL (Negative); Urine Clarity Cloudy (Clear); Urine Urobilinogen Normal (Normal)
[2019-07-27 18:57] LABS: Bacteria 2+ /hpf (None Seen); Red Blood Cells-Urine 0-5 SEEN /hpf (0-5); Squamous Epithelial Cells - UA 0-5 SEEN /hpf (5-10); White Blood Cells 25-50 SEEN /hpf (0-5)
[2019-07-27 19:00] VITALS: BP 152/67; PULSE 87; RESP 18; O2SAT 94
[2019-07-27 19:27] VITALS: BP 149/67; RESP 18; O2SAT 95
[2019-07-27] MEDS: Acetaminophen 325 MG Tablet 650 MG PO (19:33)
[2019-07-27] MEDS: 0.9% Saline Lock 10 ML Syringe IV (19:42)
--- NOTE | 2019-07-30 13:42 | ED.RN ---
URINE CULTURE AND SENSITIVITY RESULTED LOOKED AT BY DR CARRION AND VERIFIED THAT CORRECT ANTIBIOTICS ARE BEING TAKEN. NO CHANGES ORDERED
== END 2019-07-27 19:44 | disposition home or self-care (01) ==
PROVIDERS: Emergency Provider Emergency Medicine; PCP Internal Medicine Hematology & Oncology
DX: N39.0 Urinary tract infection, site not specified (principal); R50.9 Fever, unspecified; C55 Malignant neoplasm of uterus, part unspecified; E66.9 Obesity, unspecified; Z79.899 Other long term (current) drug therapy; Z90.710 Acquired absence of both cervix and uterus
CPT/HCPCS: 36591; 71046; 80053; 81001; 83605; 85025; 85610; 85730; 87040; 87077; 87086; 87088; 87186; 96365; 96375; 99284; J7030; A4216

== ENCOUNTER 2022-05-06 17:00 | Outpatient (CLI) | payer MEDICARE, SELFPAY ==
[2022-05-06 17:09] LABS: Mucous, Urine 0 SEEN /hpf (<or=2+); Red Blood Cells-Urine 0 SEEN /hpf (0-5)
[2022-05-06 18:14] LABS: Absolute Lymphocyte Count 2.02 X10^3/uL (0.83-4.51); Absolute Neutrophil Count 6.5 X10^3/uL (2.0-7.7); Basophil# 0.03 X10^3/uL; Basophil% 0.3 % (0-1); Eosinophil# 0.05 X10^3/uL; Eosinophils% 0.6 % (0-5); Hematocrit 36.3 % (37-47); Hemoglobin 11.5 g/dL (12.0-15.0); Lymphocyte # 2.02 X10^3/ul (0.83-4.51); Lymphocyte % 22.3 % (19-41); Mean Corp Hgb Conc 31.7 g/dL (32-36); Mean Corpuscular Hgb 29.1 pg (27.0-32.0); Mean Corpuscular Volume 91.9 fL (81-99); Mean Platelet Vol. 9.4 fl (6.2-12.0); Monocyte% 4.4 % (0-10); NRBC Flagged by Analyzer 0 % (0-5); Neutrophil # 6.51 X10^3/uL (2.7-7.7); Neutrophil % 72.1 % (47-70); Platelet Count 232 K/mm3 (150-450); RBC Distribution Width CV 13.2 % (11.6-14.6); RBC Distribution Width SD 44.1 fl (35.1-43.9); Red Blood Count 3.95 M/mm3 (4.2-5.4)
[2022-05-06 18:18] LABS: Glucose, Dipstick Normal (Normal); Ketone-Dipstick 5 mg/dl (Negative); Leukocyte Esterase-Dipstick 500 /ul (Negative); Nitrite-Dipstick Negative (Negative); Occult Blood-Urine Negative /ul (Negative); Protein-Dipstick 15 mg/dl (Negative); Urine Bilirubin Dipstick Negative (Negative); Urine Urobilinogen 1 mg/dl (Normal)
[2022-05-06 18:34] LABS: Color, Urine Yellow (Yellow)
[2022-05-06 18:35] LABS: Bacteria 1+ /hpf (None Seen); Squamous Epithelial Cells - UA 0-5 SEEN /hpf (5-10); Urine Clarity Sl Cloudy (Clear); White Blood Cells 10-25 SEEN /hpf (0-5)
[2022-05-06 18:56] LABS: AST(SGOT) 19 U/L (15-37); Alanine Aminotransfer ALT/SGPT 22 U/L (13-56); Albumin, Serum 3.4 g/dL (3.2-5.0); Alkaline Phosphatase 131 U/L (45-117); Anion Gap 8 (5-15); BUN 19 mg/dL (7-18); BUN/Creat Ratio 21.4 RATIO (10-20); Calcium,Total 8.9 mg/dL (8.5-10.1); Chloride 101 mmol/L (98-107); Cholesterol 190 mg/dL (200); Creatinine, Serum 0.89 mg/dL (0.55-1.02); EST Glomerular Filtration Rate 66 mL/min (>60); Est Glom Filt Rate - Afr Amer 80 mL/min (>60); Globulin 3.5 g/dL (2.2-4.2); Glucose 164 mg/dL (74-106); High Density Lipoprotein 56 mg/dL; Potassium 3.1 mmol/L (3.5-5.1); Protein, Total 6.9 g/dL (6.4-8.2); Sodium Level 139 mmol/L (136-145); T4 Free Direct 0.93 ng/dL (0.76-1.46); Thyroid Stim Hormone (TSH) 2.26 uIU/mL (0.358-3.74); Triglycerides 277 mg/dL; Very Low Density Lipoprotein 55 mg/dL (5-40)
[2022-05-06 19:10] LABS: Hemoglobin A1c 6.1 % (3.8-5.6)
[2022-05-10 09:17] LABS: Ferritin 158 ng/mL (8-252); Iron 86 ug/dL (50-170); Iron Binding Capacity,Total 286 ug/dL (250-450); PERCENT IRON SATURATION 30.1 % (15.0-55.0)
[2022-05-11 13:27] LABS: Anti-Thyroglobulin AB < 1.0 IU/mL (0.0-0.9); Thyroglobulin, Serum Qt. 42.1 ng/mL (1.5-38.5); Thyroid Peroxidase AB 12 IU/mL (0-34)
== END 2022-05-06 23:59 | disposition home or self-care (01) ==
PROVIDERS: PCP Family Medicine; Referring Provider Family Medicine; Visit Provider Family Medicine
DX: I10 Essential (primary) hypertension (principal); R82.81 Pyuria; E78.00 Pure hypercholesterolemia, unspecified; R73.02 Impaired glucose tolerance (oral); E87.6 Hypokalemia; D64.9 Anemia, unspecified
CPT/HCPCS: 80053; 80061; 81001; 82728; 83036; 83540; 83550; 83735; 84432; 84439; 84443; 85025; 86376; 86800

== ENCOUNTER → 2022-05-11 | Outpatient (CLI) | payer MEDICARE, SELFPAY | END | disposition home or self-care (01) | LOC: MTLAB 13:26 | PROVIDERS: PCP Family Medicine; Referring Provider Family Medicine; Visit Provider Family Medicine | DX: R82.81 Pyuria (principal) | CPT/HCPCS: 36415; 87086; 87088 ==

== ENCOUNTER → 2022-05-14 | Outpatient (CLI) | payer MEDICARE, SELFPAY ==
--- NOTE | 2022-05-14 14:58 | ECHOD_ITS ---
Reason For Study: MURMUR Procedure This was a 2D Doppler, Color Flow transthoracic echocardiogram. Exam performed in department. Left Ventricle Normal size and thickness. The left ventricular ejection fraction is 50 %. Diastolic function is indeterminate. Right Ventricle Normal right ventricle. Atria The left atrium is mildly enlarged. Normal right atrium. Mitral Valve Trivial mitral valve insufficiency. Tricuspid Valve Normal tricuspid valve. Unable to estimate RV systolic pressure due to insufficient tricuspid regurgitant envelope. Aortic Valve Moderate diffuse aortic valve calcification. Mild aortic stenosis. Pulmonic Valve The pulmonic valve is not well visualized. Great Vessels Normal sized aortic root. Pericardium/Pleural No pericardial effusion. MMode/2D Measurements & Calculations LVIDd: 4.9 cm IVSd: 0.86 cm LAV(MOD-bp): 66.9 ml LVIDs: 3.4 cm LVPWd: 1.0 cm LAV(MOD-bp) Indexed: 34.2 ml/m2 FS: 29.0 % LAV(MOD-sp2): 72.3 ml LAV(MOD-sp4): 55.6 ml SV(MOD-sp4): 22.0 ml SV(sp4-el): 22.7 ml LVAd ap4: 17.3 cm2 LVLd ap4: 7.4 cm EDV(MOD-sp4): 35.7 ml EDV(sp4-el): 34.5 ml LVAs ap4: 9.3 cm2 LVLs ap4: 6.2 cm ESV(MOD-sp4): 13.6 ml ESV(sp4-el): 11.8 ml EF(MOD-sp4): 61.8 % EF(sp4-el): 65.8 % LA A4 area: 20.2 cm2 RA A4 area: 14.8 cm2 Time Measurements MV dec time: 0.23 sec Doppler Measurements & Calculations MV E max francisco: 65.0 cm/sec Lat Peak E' Francisco: 6.2 cm/sec Med Peak E' Francisco: 5.9 cm/sec MV A max francisco: 95.1 cm/sec E/E' lat: 10.5 E/E' med: 11.1 MV E/A: 0.68 MV V2 max: 83.7 cm/sec MV dec slope: 287.1 cm/sec2 Ao V2 max: 192.2 cm/sec MV max P.8 mmHg Ao max P.8 mmHg MV V2 mean: 41.7 cm/sec Ao V2 mean: 136.3 cm/sec MV mean P.88 mmHg Ao mean P.5 mmHg MV V2 VTI: 30.2 cm Ao V2 VTI: 47.3 cm LV V1 max: 91.1 cm/sec LV V1 max P.3 mmHg LV V1 mean P.9 mmHg LV V1 mean: 64.2 cm/sec LV V1 VTI: 20.7 cm ECHO/Echo Complete Interpretation Summary The left ventricular ejection fraction is 50 %. Diastolic function is indeterminate. The left atrium is mildly enlarged. Mild aortic stenosis. Ordering Physician: Sadiq Hart Referring Physician: Sadiq Hart Performed By: Lucero Godinez RCS
--- NOTE | 2022-05-14 14:59 | US_ITS ---
STUDY: THYROID ULTRASOUND REASON FOR EXAM: Female, 72 years old. Nodule. TECHNIQUE: Ultrasound evaluation of the thyroid was performed with real-time and static gregorio-scale imaging. COMPARISON: None. FINDINGS: RIGHT LOBE: The right lobe of the thyroid gland measures 4.3 x 1.5 x 1 point cm. There is a homogeneous echotexture. There is a 1.0 x 0.9 x 0.6 cm heterogenous mixed iso and hypoechoic nodule in the posterior upper pole. This is wider than it is tall and well marginated. In the mid thyroid immediately there is a 0.5 x 0.6 x 0.3 cm heterogenous mixed hypo and isoechoic nodule. This is again wider than it is tall with smooth margins. In the lower pole is a 0.7 x 0.8 x 0.4 cm isoechoic nodule with focal cystic changes. This is well-demarcated and wider than it is tall. LEFT LOBE: The left lobe of the thyroid gland measures 4.1 x 1.6 x 1.5 cm. There is a homogeneous echotexture. In the mid thyroid there is a 2.3 x 1.3 x 1.3 cm well marginated markedly hypoechoic nodule. This is wider than it is tall and smoothly marginated. ISTHMUS: The isthmus measures 0.2 cm. The regional lymph nodes are normal. US/Thyroid IMPRESSION: 1. Bilateral thyroid nodules 2. A large hypoechoic nodule in the left thyroid is considered moderately suspicious, TR 4, by TI-RADS categorization. FNA is recommended. The nodular densities in the right thyroid are considered mildly suspicious, TR 3. 3. No FNA or follow-up is necessary due to their small size. Electronically Signed: Lenard Paredes DO at 21:42 EST Reading Location ID and State: [facility] Tel [phone], Service support ,
== END | disposition home or self-care (01) ==
LOC: CVS 14:56
PROVIDERS: PCP Family Medicine; Referring Provider Family Medicine; Visit Provider Family Medicine
DX: R01.1 Cardiac murmur, unspecified (principal); E04.1 Nontoxic single thyroid nodule
CPT/HCPCS: 76536; 93306

== ENCOUNTER → 2022-06-09 | Outpatient (CLI) | payer MEDICARE, SELFPAY ==
[2022-06-09 18:18] LABS: Anion Gap 6 (5-15); BUN 22 mg/dL (7-18); BUN/Creat Ratio 25.7 RATIO (10-20); Calcium,Total 9.2 mg/dL (8.5-10.1); Chloride 103 mmol/L (98-107); Creatinine, Serum 0.86 mg/dL (0.55-1.02); EST Glomerular Filtration Rate 69 mL/min (>60); Est Glom Filt Rate - Afr Amer 84 mL/min (>60); Glucose 123 mg/dL (74-106); Magnesium 2.3 mg/dL (1.6-2.6); Potassium 3.7 mmol/L (3.5-5.1); Sodium Level 140 mmol/L (136-145)
== END | disposition home or self-care (01) ==
LOC: MFPLAB 15:06
PROVIDERS: PCP Family Medicine; Referring Provider Family Medicine; Visit Provider Family Medicine
DX: E87.6 Hypokalemia (principal)
CPT/HCPCS: 36415; 80048; 83735

== ENCOUNTER → 2022-11-16 | Outpatient (CLI) | payer MEDICARE, SELFPAY ==
[2022-11-16 12:28] LABS: Absolute Lymphocyte Count 1.64 X10^3/uL (0.83-4.51); Absolute Neutrophil Count 2.1 X10^3/uL (2.0-7.7); Basophil# 0.02 X10^3/uL; Basophil% 0.5 % (0-1); Eosinophil# 0.13 X10^3/uL; Hematocrit 38.4 % (37-47); Hemoglobin 12.1 g/dL (12.0-15.0); Lymphocyte # 1.64 X10^3/ul (0.83-4.51); Lymphocyte % 38.4 % (19-41); Mean Corp Hgb Conc 31.5 g/dL (32-36); Mean Corpuscular Hgb 29.5 pg (27.0-32.0); Mean Corpuscular Volume 93.7 fL (81-99); Mean Platelet Vol. 9.2 fl (6.2-12.0); Monocyte# 0.32 X10^3/uL; Monocyte% 7.5 % (0-10); NRBC Flagged by Analyzer 0 % (0-5); Neutrophil # 2.14 X10^3/uL (2.7-7.7); Neutrophil % 50.1 % (47-70); Platelet Count 203 K/mm3 (150-450); RBC Distribution Width CV 13.3 % (11.6-14.6); RBC Distribution Width SD 45.5 fl (35.1-43.9); White Blood Count 4.3 K/mm3 (4.4-11.0)
[2022-11-16 13:05] LABS: ALB/GLOB Ratio 1.1 RATIO (0.9-2.4); AST(SGOT) 28 U/L (15-37); Alanine Aminotransfer ALT/SGPT 32 U/L (13-56); Albumin, Serum 3.6 g/dL (3.2-5.0); Alkaline Phosphatase 122 U/L (45-117); Anion Gap 7 (5-15); BUN 20 mg/dL (7-18); BUN/Creat Ratio 23.3 RATIO (10-20); Chloride 108 mmol/L (98-107); Cholesterol 275 mg/dL (200); Creatinine, Serum 0.86 mg/dL (0.55-1.02); EST Glomerular Filtration Rate 69 mL/min (>60); Est Glom Filt Rate - Afr Amer 83 mL/min (>60); Globulin 3.2 g/dL (2.2-4.2); Glucose 132 mg/dL (74-106); High Density Lipoprotein 49 mg/dL; Potassium 3.6 mmol/L (3.5-5.1); Protein, Total 6.8 g/dL (6.4-8.2); Sodium Level 143 mmol/L (136-145); Triglycerides 193 mg/dL; Very Low Density Lipoprotein 39 mg/dL (5-40)
[2022-11-16 20:32] LABS: Hemoglobin A1c 5.7 % (3.8-5.6)
== END | disposition home or self-care (01) ==
LOC: MFPLAB 10:50
PROVIDERS: PCP Family Medicine; Visit Provider Family Medicine
DX: D64.9 Anemia, unspecified (principal); R73.02 Impaired glucose tolerance (oral); E78.00 Pure hypercholesterolemia, unspecified
CPT/HCPCS: 36415; 80053; 80061; 83036; 85025

== ENCOUNTER 2023-03-25 14:07 | Outpatient (CLI) | payer MEDICARE, SELFPAY ==
[2023-03-25 17:35] LABS: Absolute Lymphocyte Count 1.86 X10^3/uL (0.83-4.51); Absolute Neutrophil Count 3.1 X10^3/uL (2.0-7.7); Basophil# 0.04 X10^3/uL; Basophil% 0.7 % (0-1); Eosinophils% 3.6 % (0-5); Hematocrit 40.7 % (37-47); Hemoglobin 13.1 g/dL (12.0-15.0); Lymphocyte # 1.86 X10^3/ul (0.83-4.51); Lymphocyte % 33.3 % (19-41); Mean Corp Hgb Conc 32.2 g/dL (32-36); Mean Corpuscular Hgb 29.8 pg (27.0-32.0); Mean Corpuscular Volume 92.5 fL (81-99); Mean Platelet Vol. 9.6 fl (6.2-12.0); Monocyte# 0.41 X10^3/uL; Monocyte% 7.3 % (0-10); NRBC Flagged by Analyzer 0 % (0-5); Neutrophil # 3.06 X10^3/uL (2.7-7.7); Neutrophil % 54.7 % (47-70); Platelet Count 231 K/mm3 (150-450); RBC Distribution Width CV 12.9 % (11.6-14.6); RBC Distribution Width SD 43.7 fl (35.1-43.9); White Blood Count 5.6 K/mm3 (4.4-11.0)
[2023-03-25 17:48] LABS: ALB/GLOB Ratio 1.1 RATIO (0.9-2.4); AST(SGOT) 46 U/L (15-37); Alanine Aminotransfer ALT/SGPT 60 U/L (13-56); Alkaline Phosphatase 145 U/L (45-117); Anion Gap 7 (5-15); BUN 20 mg/dL (7-18); BUN/Creat Ratio 20.4 RATIO (10-20); Calcium,Total 9.5 mg/dL (8.5-10.1); Chloride 104 mmol/L (98-107); Cholesterol 225 mg/dL (200); Creatinine, Serum 0.98 mg/dL (0.55-1.02); EST Glomerular Filtration Rate 59 mL/min (>60); Est Glom Filt Rate - Afr Amer 71 mL/min (>60); Globulin 3.6 g/dL (2.2-4.2); Glucose 155 mg/dL (74-106); High Density Lipoprotein 50 mg/dL; Potassium 3.2 mmol/L (3.5-5.1); Protein, Total 7.6 g/dL (6.4-8.2); Sodium Level 140 mmol/L (136-145); Triglycerides 351 mg/dL; Very Low Density Lipoprotein 70 mg/dL (5-40)
[2023-03-25 17:50] LABS: Vitamin D,25 Hydroxy 33.5 ng/mL
[2023-03-25 17:52] LABS: Hemoglobin A1c 6.3 % (3.8-5.6)
[2023-03-29 12:43] LABS: Hepatitis B Surface Antibody Non-Reactive; Hepatitis B Surface Antigen Non-Reactive (Nonreactive); Hepatitis C Antibody Non-Reactive (Nonreactive)
== END 2023-03-25 23:59 | disposition home or self-care (01) ==
LOC: MFPLAB 14:07
PROVIDERS: PCP Family Medicine; Visit Provider Family Medicine
DX: E11.65 Type 2 diabetes mellitus with hyperglycemia (principal); M85.80 Other specified disorders of bone density and structure, unspecified site
CPT/HCPCS: 36415; 80053; 80061; 82306; 83036; 85025; 86706; 86803; 87340

== ENCOUNTER → 2023-06-22 | Outpatient (CLI) | payer MEDICARE, SELFPAY ==
[2023-06-22 14:30] LABS: Bacteria 0 SEEN /hpf (None Seen); Mucous, Urine 0 SEEN /hpf (<or=2+); Red Blood Cells-Urine 0 SEEN /hpf (0-5)
[2023-06-22 17:36] LABS: Absolute Lymphocyte Count 1.33 X10^3/uL (0.83-4.51); Absolute Neutrophil Count 3.2 X10^3/uL (2.0-7.7); Basophil# 0.03 X10^3/uL; Basophil% 0.6 % (0-1); Eosinophil# 0.12 X10^3/uL; Eosinophils% 2.4 % (0-5); Hematocrit 39.6 % (37-47); Hemoglobin 12.7 g/dL (12.0-15.0); Lymphocyte # 1.33 X10^3/ul (0.83-4.51); Lymphocyte % 26.3 % (19-41); Mean Corp Hgb Conc 32.1 g/dL (32-36); Mean Corpuscular Hgb 29.5 pg (27.0-32.0); Mean Corpuscular Volume 92.1 fL (81-99); Mean Platelet Vol. 9.4 fl (6.2-12.0); Monocyte# 0.38 X10^3/uL; Monocyte% 7.5 % (0-10); NRBC Flagged by Analyzer 0 % (0-5); Neutrophil # 3.18 X10^3/uL (2.7-7.7); Neutrophil % 62.8 % (47-70); Platelet Count 222 K/mm3 (150-450); RBC Distribution Width CV 13.3 % (11.6-14.6); RBC Distribution Width SD 45.3 fl (35.1-43.9); White Blood Count 5.1 K/mm3 (4.4-11.0)
[2023-06-22 17:39] LABS: Color, Urine Yellow (Yellow); Glucose, Dipstick Normal (Normal); Ketone-Dipstick 5 mg/dl (Negative); Leukocyte Esterase-Dipstick 100 /ul (Negative); Nitrite-Dipstick Negative (Negative); Occult Blood-Urine Negative /ul (Negative); Protein-Dipstick 15 mg/dl (Negative); Urine Bilirubin Dipstick Negative (Negative); Urine Clarity Clear (Clear); Urine Urobilinogen 1 mg/dl (Normal)
[2023-06-22 17:48] LABS: Renal Epithelial Cells 0-5 SEEN /hpf (0-5); Squamous Epithelial Cells - UA 0-5 SEEN /hpf (5-10)
[2023-06-22 17:49] LABS: White Blood Cells 10-25 SEEN /hpf (0-5)
[2023-06-22 17:56] LABS: ALB/GLOB Ratio 1.1 RATIO (0.9-2.4); AST(SGOT) 51 U/L (15-37); Alanine Aminotransfer ALT/SGPT 47 U/L (13-56); Albumin, Serum 3.6 g/dL (3.2-5.0); Alkaline Phosphatase 135 U/L (45-117); Anion Gap 9 (5-15); BUN 19 mg/dL (7-18); BUN/Creat Ratio 20.7 RATIO (10-20); Calcium,Total 8.7 mg/dL (8.5-10.1); Chloride 101 mmol/L (98-107); Cholesterol 172 mg/dL (200); Creatinine, Serum 0.92 mg/dL (0.55-1.02); EST Glomerular Filtration Rate 64 mL/min (>60); Est Glom Filt Rate - Afr Amer 77 mL/min (>60); Globulin 3.3 g/dL (2.2-4.2); Glucose 223 mg/dL (74-106); High Density Lipoprotein 45 mg/dL; Potassium 3.2 mmol/L (3.5-5.1); Protein, Total 6.9 g/dL (6.4-8.2); Sodium Level 140 mmol/L (136-145); Triglycerides 355 mg/dL; Very Low Density Lipoprotein 71 mg/dL (5-40)
[2023-06-22 17:58] LABS: Microalbumin,Random Urine 49.2 mg/L (NO RANGE EST.); Microalbumin:Creatinine Ratio 24.4 mg/g CRE (<30 mg/g CRE)
[2023-06-22 18:12] LABS: Vitamin D,25 Hydroxy 40.5 ng/mL
[2023-06-22 18:13] LABS: Hemoglobin A1c 6.5 % (3.8-5.6)
== END | disposition home or self-care (01) ==
LOC: MFPLAB 14:29
PROVIDERS: PCP Family Medicine; Visit Provider Family Medicine
DX: E11.8 Type 2 diabetes mellitus with unspecified complications (principal); M85.80 Other specified disorders of bone density and structure, unspecified site
CPT/HCPCS: 36415; 80053; 80061; 81001; 82043; 82306; 82570; 83036; 85025

== ENCOUNTER → 2023-10-25 | Outpatient (CLI) | payer MEDICARE, SELFPAY ==
[2023-10-25 14:56] LABS: Bacteria 0 SEEN /hpf (None Seen); Mucous, Urine 0 SEEN /hpf (<or=2+); Red Blood Cells-Urine 0 SEEN /hpf (0-5)
[2023-10-25 17:53] LABS: Color, Urine Yellow (Yellow); Glucose, Dipstick Normal (Normal); Ketone-Dipstick 5 mg/dl (Negative); Leukocyte Esterase-Dipstick 100 /ul (Negative); Nitrite-Dipstick Negative (Negative); Occult Blood-Urine Negative /ul (Negative); Protein-Dipstick 30 mg/dl (Negative); Specific Gravity, Urine 1.005 (1.002-1.030); Urine Bilirubin Dipstick Negative (Negative); Urine Clarity Clear (Clear); Urine Urobilinogen 4 mg/dl (Normal)
[2023-10-25 17:54] LABS: Absolute Lymphocyte Count 1.36 X10^3/uL (0.83-4.51); Absolute Neutrophil Count 4.4 X10^3/uL (2.0-7.7); Basophil# 0.06 X10^3/uL; Basophil% 0.9 % (0-1); Eosinophil# 0.12 X10^3/uL; Eosinophils% 1.9 % (0-5); Hematocrit 41.1 % (37-47); Hemoglobin 13.5 g/dL (12.0-15.0); Lymphocyte # 1.36 X10^3/ul (0.83-4.51); Lymphocyte % 21.3 % (19-41); Mean Corp Hgb Conc 32.8 g/dL (32-36); Mean Corpuscular Hgb 29.7 pg (27.0-32.0); Mean Corpuscular Volume 90.5 fL (81-99); Mean Platelet Vol. 9.7 fl (6.2-12.0); Monocyte# 0.42 X10^3/uL; Monocyte% 6.6 % (0-10); NRBC Flagged by Analyzer 0 % (0-5); Neutrophil % 68.8 % (47-70); Platelet Count 278 K/mm3 (150-450); RBC Distribution Width CV 13.2 % (11.6-14.6); RBC Distribution Width SD 43.6 fl (35.1-43.9); Red Blood Count 4.54 M/mm3 (4.2-5.4); White Blood Count 6.4 K/mm3 (4.4-11.0)
[2023-10-25 18:10] LABS: Hyaline Cast 0-5 SEEN /lpf (0-5); Squamous Epithelial Cells - UA 0-5 SEEN /hpf (5-10); White Blood Cells 0-5 SEEN /hpf (0-5)
[2023-10-25 18:18] LABS: Microalbumin,Random Urine 13.2 mg/L (NO RANGE EST.); Microalbumin:Creatinine Ratio 5.3 mg/g CRE (<30 mg/g CRE); Vitamin D,25 Hydroxy 40.3 ng/mL
[2023-10-25 18:22] LABS: Hemoglobin A1c 6.4 % (3.8-5.6)
[2023-10-25 18:35] LABS: AST(SGOT) 61 U/L (15-37); Alanine Aminotransfer ALT/SGPT 48 U/L (13-56); Albumin, Serum 3.7 g/dL (3.2-5.0); Alkaline Phosphatase 148 U/L (45-117); Anion Gap 7 (5-15); BUN 15 mg/dL (7-18); Calcium,Total 9.3 mg/dL (8.5-10.1); Chloride 101 mmol/L (98-107); Cholesterol 180 mg/dL (200); Creatinine, Serum 1.07 mg/dL (0.55-1.02); EST Glomerular Filtration Rate 53 mL/min (>60); Est Glom Filt Rate - Afr Amer 64 mL/min (>60); Globulin 3.7 g/dL (2.2-4.2); Glucose 248 mg/dL (74-106); High Density Lipoprotein 43 mg/dL; Potassium 3.2 mmol/L (3.5-5.1); Protein, Total 7.4 g/dL (6.4-8.2); Rheumatoid Factor < 10.0 IU/mL (<15); Sodium Level 136 mmol/L (136-145); Thyroid Stim Hormone (TSH) 3.22 uIU/mL (0.358-3.74); Triglycerides 256 mg/dL; Very Low Density Lipoprotein 51 mg/dL (5-40)
[2023-10-27 18:07] LABS: ANTINUCLEAR ANTIBODIES DIRECT Negative (Negative)
== END | disposition home or self-care (01) ==
LOC: MFPLAB 14:54
PROVIDERS: PCP Family Medicine; Visit Provider Family Medicine
DX: M79.643 Pain in unspecified hand (principal); E11.65 Type 2 diabetes mellitus with hyperglycemia; M85.80 Other specified disorders of bone density and structure, unspecified site
CPT/HCPCS: 36415; 80053; 80061; 81001; 82043; 82306; 82570; 83036; 84443; 85025; 86038; 86431

== ENCOUNTER → 2024-01-16 | Outpatient (CLI) | payer MEDICARE, SELFPAY ==
--- NOTE | 2024-01-16 13:55 | BI_ITS ---
MAMMOGRAPHY - BILATERAL SCREENING REASON FOR EXAM: Female, 73 years old. Routine annual screening examination. PERTINENT HISTORY: Non-contributory. TECHNIQUE: Digital bilateral breast homero (3D mammographic acquisition) in the CC and MLO projections. 2-D mediolateral oblique (MLO) and craniocaudad (CC) views of both breasts were obtained. CAD: Full Field Digital Mammography with Computer Added Detection was performed. COMPARISON: Comparison is made with prior study dated February 03, 2015 and June 10, 2011. FINDINGS: Breast Composition: The breasts are almost entirely fatty. There are no dominant masses or suspicious calcifications. Stable fat-containing bilateral axillary lymph nodes. No other significant abnormalities are identified. There has been no significant change since the prior study. BI/SCRN MAMM (CAD)W/HOMERO BILAT IMPRESSION: Stable bilateral screening mammogram. Yearly follow-up mammogram recommended. (A) ASSESSMENT CATEGORY: BIRADS Category 2: Benign. A letter regarding these results will be sent to the patient by the facility within 30 days. Approximately 10% of breast cancers are not detected by mammography. A normal mammogram should not delay biopsy of a clinically suspicious abnormality. [id number] Electronically Signed: David Becerril MD at 8:11 EDT ,
== END | disposition home or self-care (01) ==
LOC: OPBI 13:55
PROVIDERS: PCP Family Medicine; Referring Provider Family Medicine; Visit Provider Family Medicine
DX: Z12.31 Encounter for screening mammogram for malignant neoplasm of breast (principal)
CPT/HCPCS: 77063; 77067

== ENCOUNTER → 2024-01-23 | Outpatient (CLI) | payer MEDICARE, SELFPAY ==
--- NOTE | 2024-01-23 13:02 | ECHOCS_ITS ---
Reason For Study: MENDENHALL Procedure This was a 2D Doppler, Color Flow transthoracic echocardiogram. The study was technically difficult. Contrast injection was performed. Exam performed in department. Left Ventricle Normal LV size. The estimated ejection fraction is 60 %. Unable to assess diastolic dysfunction. No regional wall motion abnormalities noted. Right Ventricle Normal RV size. Normal systolic function. Atria Normal left atrium. Normal right atrium. No doppler evidence for ASD. Mitral Valve There is moderate mitral annular calcification. There is no mitral valve stenosis. No mitral valve insufficiency. Tricuspid Valve There is no tricuspid stenosis. Unable to estimate RV systolic pressure due to inadequate jet, pulmonary artery pressure probably normal. Aortic Valve Moderate diffuse aortic valve thickening. Trisinus/trileaflet aortic valve. Mild aortic stenosis. No aortic valve insufficiency. Pulmonic Valve There is no pulmonic valvular stenosis. No pulmonic valve insufficiency. Great Vessels Normal aortic root. Pericardium/Pleural No pericardial effusion. Medication 22 gauge I.V. with prn adaptor inserted into right arm. Diluted definity 1ml given slow IV push to enhance endocardial definition. MMode/2D Measurements & Calculations LVIDd: 4.5 cm IVSd: 1.2 cm LVOT diam: 2.2 cm LVIDs: 3.6 cm LVPWd: 1.2 cm FS: 19.2 % LVOT area: 3.8 cm2 LAV(MOD-sp4): 59.6 ml LVAd ap4: 33.2 cm2 SV(MOD-sp4): 63.7 ml LVLd ap4: 9.0 cm EDV(MOD-sp4): 101.5 ml EDV(sp4-el): 103.7 ml LVAs ap4: 17.8 cm2 LVLs ap4: 7.1 cm ESV(MOD-sp4): 37.9 ml ESV(sp4-el): 38.1 ml EF(MOD-sp4): 62.7 % EF(sp4-el): 63.2 % SV(sp4-el): 65.6 ml LA A4 area: 22.0 cm2 LA dimension(2D): 3.8 cm RA A4 area: 13.8 cm2 Time Measurements MV dec time: 0.30 sec Doppler Measurements & Calculations MV E max francisco: 51.0 cm/sec Lat Peak E' Francisco: 8.5 cm/sec Med Peak E' Francisco: 4.9 cm/sec MV A max francisco: 88.7 cm/sec E/E' lat: 6.0 E/E' med: 10.4 MV E/A: 0.58 MV V2 max: 95.0 cm/sec MV dec slope: 174.7 cm/sec2 Ao V2 max: 240.5 cm/sec MV max P.6 mmHg Ao max P.2 mmHg MV V2 mean: 46.1 cm/sec Ao V2 mean: 180.1 cm/sec MV mean P.0 mmHg Ao mean P.3 mmHg MV V2 VTI: 32.1 cm Ao V2 VTI: 57.6 cm MVA(VTI): 3.3 cm2 AV (velocity ratio): 0.49 TIMO(I,D): 1.9 cm2 TIMO(V,D): 2.1 cm2 LV V1 max: 134.6 cm/sec SV(LVOT): 107.0 ml LV V1 max P.3 mmHg LV V1 mean P.0 mmHg LV V1 mean: 93.8 cm/sec LV V1 VTI: 28.0 cm ECHO/Echo Complete W/ Contrast Interpretation Summary The estimated ejection fraction is 60 %. Unable to assess diastolic dysfunction. Mild aortic stenosis. Ordering Physician: Sadiq Hart Referring Physician: Sadiq Hart Performed By: Lucero Godinez RCS
== END | disposition home or self-care (01) ==
PROVIDERS: PCP Family Medicine; Referring Provider Family Medicine; Visit Provider Family Medicine
DX: R06.02 Shortness of breath (principal)
CPT/HCPCS: 93306; Q9957; A4216; C8929

== ENCOUNTER → 2024-05-08 | Outpatient (CLI) | payer MEDICARE, SELFPAY ==
--- NOTE | 2024-05-08 09:59 | BD_ITS ---
STUDY: DUAL ENERGY X-RAY ABSORPTIOMETRY / DXA REASON FOR EXAM: Female, 74 years old. 733.00OsteoporosisBONE DENSITY REASON FOR EXAM TECHNIQUE: Bone Mineral Density (BMD) measurements of lumbar spine and bilateral hips were obtained. COMPARISON: None. FINDINGS: Lumbar Spine (L1-L4): g/cm2 (1.056) / T-score (0.1) / Z-score (-2.5) Findings are suggestive of normal bone density with a low fracture risk. Left Femur Total: g/cm2 (0.896) / T-score (-0.4) / Z-score (1.4) Left Femoral Neck: g/cm2 (0.746) / T-score (-0.9) / Z-score (1.2) Right Femur Total: g/cm2 (0.864) / T-score (-0.6) / Z-score (1.1) Right Femoral Neck: g/cm2 (0.686) / T-score (-1.5) / Z-score (0.6) BD/Dexa Bone Density Study IMPRESSION: The patient is considered osteopenic as outlined below according to World Guy Organization (WHO) criteria with a low fracture risk. Reference Information: The T-score is the number of standard deviations above or below the standard which is normal for young adults at their peak bone mineral density. The World Health Organization (WHO) interprets the T-scores as follows: Above -1 Normal bone density Between -1 and -2.5 Osteopenia Equal to / or below -2.5 Osteoporosis As a practical clinical guideline, osteopenia may be graded as follows: Mild -1 through -1.5 Moderate -1.6 through -2.0 Severe -2.1 through -2.4 The Z-score is the number of standard deviations above or below age-matched controls. A Z-score of less than -1.5 would be considered abnormal. References: 1. NIH Osteoporosis and Related Bone Diseases www osteo.org 2. International Society for Clinical Densitometry www iscd.org 3. National Osteoporosis Foundation www nof.org Electronically Signed: David Becerril MD at 8:25 EST ,
[2024-05-08 10:40] LABS: Red Blood Cells-Urine 0 SEEN /hpf (0-5)
[2024-05-08 12:21] LABS: Color, Urine Yellow (Yellow); Glucose, Dipstick Normal (Normal); Ketone-Dipstick Negative (Negative); Leukocyte Esterase-Dipstick 500 /ul (Negative); Nitrite-Dipstick Negative (Negative); Occult Blood-Urine Negative /ul (Negative); Protein-Dipstick 15 mg/dl (Negative); Specific Gravity, Urine 1.015 (1.002-1.030); Urine Bilirubin Dipstick Negative (Negative); Urine Clarity Clear (Clear); Urine Urobilinogen 1 mg/dl (Normal)
[2024-05-08 12:23] LABS: Absolute Lymphocyte Count 1.45 X10^3/uL (0.83-4.51); Absolute Neutrophil Count 2.4 X10^3/uL (2.0-7.7); Basophil# 0.05 X10^3/uL; Basophil% 1.1 % (0-1); Eosinophil# 0.18 X10^3/uL; Eosinophils% 4.1 % (0-5); Hematocrit 39.3 % (37-47); Hemoglobin 12.2 g/dL (12.0-15.0); Lymphocyte # 1.45 X10^3/ul (0.83-4.51); Lymphocyte % 33.1 % (19-41); Mean Corpuscular Volume 93.6 fL (81-99); Monocyte# 0.32 X10^3/uL; Monocyte% 7.3 % (0-10); NRBC Flagged by Analyzer 0 % (0-5); Neutrophil # 2.37 X10^3/uL (2.7-7.7); Neutrophil % 54.2 % (47-70); Platelet Count 176 K/mm3 (150-450); RBC Distribution Width CV 13.2 % (11.6-14.6); RBC Distribution Width SD 45.1 fl (35.1-43.9); White Blood Count 4.4 K/mm3 (4.4-11.0)
[2024-05-08 12:29] LABS: Bacteria 1+ /hpf (None Seen); Mucous, Urine 1+ /hpf (<or=2+); Squamous Epithelial Cells - UA 0-5 SEEN /hpf (5-10); White Blood Cells 5-10 SEEN /hpf (0-5)
[2024-05-08 12:55] LABS: Vitamin B12 887 pg/mL (211-911)
[2024-05-08 13:18] LABS: Microalbumin,Random Urine 28.2 mg/L (NO RANGE EST.); Microalbumin:Creatinine Ratio 12.2 mg/g CRE (<30 mg/g CRE)
[2024-05-08 13:24] LABS: Hemoglobin A1c 6.2 % (3.8-5.6)
[2024-05-08 13:55] LABS: AST(SGOT) 32 U/L (15-37); Alanine Aminotransfer ALT/SGPT 26 U/L (13-56); Albumin, Serum 3.2 g/dL (3.2-5.0); Alkaline Phosphatase 123 U/L (45-117); Anion Gap 7 (5-15); BUN 11 mg/dL (7-18); BUN/Creat Ratio 13.2 RATIO (10-20); Calcium,Total 8.9 mg/dL (8.5-10.1); Chloride 108 mmol/L (98-107); Cholesterol 147 mg/dL (200); Creatinine, Serum 0.84 mg/dL (0.55-1.02); EST Glomerular Filtration Rate 71 mL/min (>60); Est Glom Filt Rate - Afr Amer 86 mL/min (>60); Ferritin 56 ng/mL (8-252); Globulin 3.1 g/dL (2.2-4.2); Glucose 140 mg/dL (74-106); High Density Lipoprotein 46 mg/dL; Iron 69 ug/dL (50-170); Iron Binding Capacity,Total 369 ug/dL (250-450); Potassium 3.7 mmol/L (3.5-5.1); Protein, Total 6.3 g/dL (6.4-8.2); Sodium Level 143 mmol/L (136-145); Triglycerides 195 mg/dL; Very Low Density Lipoprotein 39 mg/dL (5-40)
== END | disposition home or self-care (01) ==
LOC: OPBD 09:55
PROVIDERS: PCP Family Medicine; Referring Provider Family Medicine; Visit Provider Family Medicine
DX: D64.9 Anemia, unspecified (principal); E11.8 Type 2 diabetes mellitus with unspecified complications; Z78.0 Asymptomatic menopausal state; M85.80 Other specified disorders of bone density and structure, unspecified site
CPT/HCPCS: 36415; 77080; 80053; 80061; 81001; 82043; 82306; 82570; 82607; 82728; 82746; 83036; 83540; 83550; 85025

== ENCOUNTER → 2024-10-09 | Outpatient (CLI) | payer MEDICARE, SELFPAY ==
[2024-10-09 11:59] LABS: Mucous, Urine 0 SEEN /hpf (<or=2+)
[2024-10-09 15:53] LABS: Absolute Lymphocyte Count 1.26 X10^3/uL (0.83-4.51); Basophil# 0.04 X10^3/uL; Basophil% 0.8 % (0-1); Eosinophil# 0.17 X10^3/uL; Eosinophils% 3.5 % (0-5); Hematocrit 38.2 % (37-47); Hemoglobin 12.5 g/dL (12.0-15.0); Lymphocyte # 1.26 X10^3/ul (0.83-4.51); Lymphocyte % 26.3 % (19-41); Mean Corp Hgb Conc 32.7 g/dL (32-36); Mean Corpuscular Hgb 30.2 pg (27.0-32.0); Mean Corpuscular Volume 92.3 fL (81-99); Mean Platelet Vol. 9.6 fl (6.2-12.0); Monocyte# 0.31 X10^3/uL; Monocyte% 6.5 % (0-10); NRBC Flagged by Analyzer 0 % (0-5); Neutrophil % 62.7 % (47-70); Platelet Count 167 K/mm3 (150-450); RBC Distribution Width CV 13.3 % (11.6-14.6); RBC Distribution Width SD 44.9 fl (35.1-43.9); Red Blood Count 4.14 M/mm3 (4.2-5.4); White Blood Count 4.8 K/mm3 (4.4-11.0)
[2024-10-09 15:55] LABS: Color, Urine Yellow (Yellow); Glucose, Dipstick Normal (Normal); Ketone-Dipstick Negative (Negative); Leukocyte Esterase-Dipstick 25 /ul (Negative); Nitrite-Dipstick Negative (Negative); Occult Blood-Urine Negative /ul (Negative); Protein-Dipstick 15 mg/dl (Negative); Urine Bilirubin Dipstick Negative (Negative); Urine Clarity Sl. Cloudy (Clear); Urine Urobilinogen Normal (Normal)
[2024-10-09 16:26] LABS: ALB/GLOB Ratio 1.6 RATIO (0.9-2.4); AST(SGOT) 32 U/L (<=31); Alanine Aminotransfer ALT/SGPT 20 U/L (<=34); Alkaline Phosphatase 130 U/L (35-104); Anion Gap 11 (5-15); BUN 13 mg/dL (4-19); Calcium,Total 9.7 mg/dL (7.6-11.0); Carbon Dioxide 29.7 mmol/L (21.0-32.0); Chloride 104 mmol/L (98-108); Cholesterol 161 mg/dL (<=200); Creatinine, Serum 0.96 mg/dL (0.70-1.20); EST Glomerular Filtration Rate 62 (>60); Globulin 2.5 g/dL (2.2-4.2); Glucose 140 mg/dL (70-99); High Density Lipoprotein 48 mg/dL; Low Density Lipoprotein Calc. 74 mg/dL; Potassium 4.3 mmol/L (3.3-5.1); Protein, Total 6.5 g/dL (5.9-8.4); Sodium Level 144 mmol/L (133-145); Triglycerides 191 mg/dL; Very Low Density Lipoprotein 38 mg/dL (5-40); cholesterol:hdl ratio screen 3.33
[2024-10-09 16:28] LABS: Microalbumin,Random Urine < 12.0 mg/L (NO RANGE EST.); Microalbumin:Creatinine Ratio UNABLE TO CALCULATE mg/g CRE
[2024-10-09 16:40] LABS: Hemoglobin A1c 6.4 % (<=5.6)
[2024-10-09 17:12] LABS: Squamous Epithelial Cells - UA 0-5 SEEN /hpf (5-10); Transitional Epithelial - Ur 0-5 SEEN /hpf (0-5)
[2024-10-09 17:14] LABS: Red Blood Cells-Urine 0-5 SEEN /hpf (0-5); White Blood Cells 5-10 SEEN /hpf (0-5)
[2024-10-09 17:16] LABS: Bacteria RARE /hpf (None Seen)
[2024-10-09 19:06] LABS: Vitamin D,25 Hydroxy 56.1 ng/mL (30-100)
== END | disposition home or self-care (01) ==
LOC: MFPLAB 11:49
PROVIDERS: PCP Family Medicine; Visit Provider Family Medicine
DX: E11.8 Type 2 diabetes mellitus with unspecified complications (principal); E55.9 Vitamin D deficiency, unspecified
CPT/HCPCS: 36415; 80053; 80061; 81001; 82043; 82306; 82570; 83036; 85025

== ENCOUNTER → 2024-10-18 | Outpatient (CLI) | payer MEDICARE, SELFPAY ==
--- NOTE | 2024-10-18 14:36 | US_ITS ---
PROCEDURE: THYROID 10/18/2024 REASON FOR EXAM: NODULE TECHNIQUE: High-frequency thyroid ultrasound, including grayscale and color-flow images. REFERENCE LINKS: TI-RADS Chart: [email or web address] TI-RADS Calculator Tool with Reference Images: [email or web address]/ COMPARISON: 05/14/2022 FINDINGS: Right thyroid lobe size: 5.1 x 1.8 x 1.5 cm Left thyroid lobe size: 3.8 x 1.8 x 2.0 cm Isthmus: 0.4 cm Background parenchymal echotexture is heterogeneous. Nodules: Nodule 1: No change in the 10 x 5 x 7 mm solid hypoechoic wider than tall ill- defined margin nodule with punctate echogenic foci (TR 4) in the lateral right lobe for which ultrasound-guided biopsy is recommended if never performed. Nodule 2: No change in the 25 x 15 by 16 mm solid hypoechoic wider than tall smoothly marginated nodule with no echogenic foci (TR 4) in the mid left lobe for which ultrasound-guided biopsy is recommended if never performed. US/Thyroid IMPRESSION: No change in bilateral dominant nodules. RECOMMENDATION: Biopsy is recommended if never performed. Reading Location: [id number]
== END | disposition home or self-care (01) ==
LOC: OPUS 14:35
PROVIDERS: PCP Family Medicine; Referring Provider Family Medicine; Visit Provider Family Medicine
DX: E04.1 Nontoxic single thyroid nodule (principal)
CPT/HCPCS: 76536

== ENCOUNTER → 2025-01-10 | Outpatient (CLI) | payer MEDICARE, SELFPAY ==
[2025-01-10 12:16] LABS: Hematocrit 36.2 % (37-47); Hemoglobin 12.0 g/dL (12.0-15.0); Immature Granulocytes Count 0.000 X10^3/uL (0.0-0.0); Mean Corp Hgb Conc 33.1 g/dL (32-36); Mean Corpuscular Volume 88.7 fL (81-99); Mean Platelet Vol. 9.1 fl (6.2-12.0); NRBC Flagged by Analyzer 0 % (0-5); Platelet Count 144 K/mm3 (150-450); RBC Distribution Width CV 13.2 % (11.6-14.6); RBC Distribution Width SD 43.1 fl (35.1-43.9); Red Blood Count 4.08 M/mm3 (4.2-5.4); White Blood Count 4.5 K/mm3 (4.4-11.0)
[2025-01-10 13:11] LABS: Creatinine, Urine (random) 77.30 mg/dL (28.00-217.00); Microalbumin,Random Urine < 12.0 mg/L (<20 mg/L)
[2025-01-10 13:35] LABS: AST(SGOT) 27 U/L (<=31); Alanine Aminotransfer ALT/SGPT 19 U/L (<=34); Albumin, Serum 4.0 g/dL (3.4-4.8); Alkaline Phosphatase 144 U/L (35-104); Anion Gap 12 (5-15); BUN 16 mg/dL (4-19); BUN/Creat Ratio 19.3 RATIO (10-20); Calcium,Total 9.5 mg/dL (7.6-11.0); Carbon Dioxide 26.7 mmol/L (21.0-32.0); Chloride 103 mmol/L (98-108); Cholesterol 179 mg/dL (<=200); Globulin 2.5 g/dL (2.2-4.2); Glucose 120 mg/dL (70-99); Low Density Lipoprotein Calc. 91 mg/dL; Potassium 4.0 mmol/L (3.3-5.1); Triglycerides 165 mg/dL; Very Low Density Lipoprotein 33 mg/dL (5-40); Vitamin D,25 Hydroxy 55.4 ng/mL (30-100); cholesterol:hdl ratio screen 3.24
== END | disposition home or self-care (01) ==
LOC: MFPLAB 11:13
PROVIDERS: PCP Family Medicine; Referring Provider Family Medicine; Visit Provider Family Medicine
DX: E11.8 Type 2 diabetes mellitus with unspecified complications (principal); M85.80 Other specified disorders of bone density and structure, unspecified site
CPT/HCPCS: 36415; 80053; 80061; 82043; 82306; 82570; 83036; 85025